=== PATIENT | male | born 1975 | race Caucasian/White ===

== ENCOUNTER 2020-08-02 08:43 | Emergency (ER) | payer BC ==
[~2020-08-02] VITALS: Ht 180.3 cm; Wt 92.0 kg
[2020-08-02 09:09] VITALS: BP 135/86
[2020-08-02] MEDS ORDERED: CETI10CA PO (09:11)
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
[2020-08-02] MEDS ORDERED: DIPH,PERTUSS(ACELL),TET VAC/PF 0.5 ML IM-VACC ONE ×2 (09:18→09:30)
[2020-08-02] MEDS ORDERED: KETOROLAC 30 MG/1 ML ONE (09:18)
[2020-08-02] MEDS ORDERED: KETOROLAC 30 MG/1 ML IM ONE (09:30)
--- NOTE | 2020-08-02 09:50 | NUR ---
MEDICATED PER ORDERS.
--- NOTE | 2020-08-02 10:21 | NUR ---
APPLIED SLING FOR DC. Patient/Caregiver given discharge instructions and they have confirmed that they understand the instructions. Patient ambulatory with steady gait.
== END 2020-08-02 10:31 | disposition home or self-care (01) ==
LOC: ED 10:00
DX: S76.011A Strain of muscle, fascia and tendon of right hip, initial encounter (principal); S43.51XA Sprain of right acromioclavicular joint, initial encounter; S29.011A Strain of muscle and tendon of front wall of thorax, initial encounter; S20.211A Contusion of right front wall of thorax, initial encounter; S43.101A Unspecified dislocation of right acromioclavicular joint, initial encounter; S40.211A Abrasion of right shoulder, initial encounter; S20.311A Abrasion of right front wall of thorax, initial encounter; S70.211A Abrasion, right hip, initial encounter; S09.90XA Unspecified injury of head, initial encounter; V17.4XXA Pedal cycle driver injured in collision with fixed or stationary object in traffic accident, initial encounter; Y93.89 Activity, other specified; Y92.410 Unspecified street and highway as the place of occurrence of the external cause; Y99.8 Other external cause status
CPT/HCPCS: 70450; 71101; 73030; 73502; 90471; 90715; 96372; 99284; J1885

== ENCOUNTER 2020-10-09 14:47 | Emergency (ER) | payer BC ==
[~2020-10-09] VITALS: Ht 180.3 cm; Wt 94.0 kg
[~2020-10-09 14:47] MED LIST: CETI10CA PO
[2020-10-09 15:35] VITALS: BP 140/86
[2020-10-09 16:12] LABS: BASOPHILS % (AUTO) 0 % (0-1); EOSINOPHILS % (AUTO) 1 % (1-7); LYMPHOCYTES % (AUTO) 25 % (22-44); MEAN CORPUSCULAR HEMOGLOBIN 30.9 pg (27.5-34.5); MEAN CORPUSCULAR HGB CONC 33.6 g/dL (33.2-36.2); MEAN PLATELET VOLUME 7.8 fL (7.4-10.4); MONOCYTES % (AUTO) 10 % (2-9); NEUTROPHILS % (AUTO) 64 % (42-75); PLATELET COUNT 237 x10^3/uL (130-400); RED BLOOD COUNT 5.03 x10^6/uL (4.38-5.82); RED CELL DISTRIBUTION WIDTH 12.8 % (9.4-14.8)
[2020-10-09 16:14] LABS: MD NO
--- NOTE | 2020-10-09 16:21 | NUR ---
IMPORTER OR EXPORTER: PT CALLED FOR ROOM, NO ANSWER
[2020-10-09 16:24] LABS: ANION GAP 4 mmol/L (5-15); CHLORIDE 109 mmol/L (98-107)
[2020-10-09 16:29] LABS: ALANINE AMINOTRANSFERASE 24 U/L (12-78); ALKALINE PHOSPHATASE 61 U/L (45-117); BILIRUBIN,TOTAL 0.4 mg/dL (0.2-1.0); CREATININE 1.22 mg/dL (0.7-1.3); TOTAL PROTEIN 7.7 g/dL (6.4-8.2)
--- NOTE | 2020-10-09 16:32 | NUR ---
HEALTHCARE BUSINESS ANALYST: CALLED FOR ROOM, NO ANSWER
[2020-10-09] MEDS ORDERED: CEFTRIAXONE 1,000 MG IM ONE (17:00)
[2020-10-09 17:10] LABS: MICROSCOPIC NOT IND
[2020-10-09] MEDS ORDERED: LIDOCAINE-MPF 1%, 2ML ONE (17:21)
[2020-10-09] MEDS ORDERED: CEFTRIAXONE 1,000 MG ONE (17:21)
== END 2020-10-09 17:54 | disposition home or self-care (01) ==
LOC: ED 16:46
DX: N49.2 Inflammatory disorders of scrotum (principal); N50.812 Left testicular pain; N50.811 Right testicular pain
CPT/HCPCS: 36415; 76870; 80053; 81003; 85025; 87491; 87591; 96372; 99284; J0696

== ENCOUNTER 2021-05-08 16:06 | Emergency (ER) | payer BC ==
[~2021-05-08] VITALS: Ht 177.8 cm; Wt 88.1 kg
--- NOTE | 2021-05-08 16:27 | NUR ---
ASSUMED CARE OF PATIENT. PATIENT REPORTS HIS TESTICLES ARE SWOLLEN. PT ALSO REPORTS CLOUDY URINE. VS STABLE. NO ACUTE DISTRESS. CALL LIGHT IN PLACE. WILL CONTINUE TO MONITOR.
[2021-05-08 17:05] LABS: MICROSCOPIC INDICATED
[2021-05-08 17:53] LABS: ALBUMIN 3.7 g/dL (3.4-5.0); ANION GAP 7 mmol/L (5-15); CALCIUM 8.9 mg/dL (8.5-10.1); CHLORIDE 107 mmol/L (98-107)
[2021-05-08 17:55] LABS: CREATININE 0.97 mg/dL (0.7-1.3)
[2021-05-08 17:58] LABS: BASOPHILS % (AUTO) 0 % (0-1); EOSINOPHILS % (AUTO) 1 % (1-7); LYMPHOCYTES % (AUTO) 27 % (22-44); MEAN CORPUSCULAR HEMOGLOBIN 31.1 pg (27.5-34.5); MEAN CORPUSCULAR HGB CONC 34.2 g/dL (33.2-36.2); MEAN PLATELET VOLUME 8.1 fL (7.4-10.4); MONOCYTES % (AUTO) 11 % (2-9); NEUTROPHILS % (AUTO) 61 % (42-75); PLATELET COUNT 217 x10^3/uL (130-400); RED BLOOD COUNT 5.07 x10^6/uL (4.38-5.82); RED CELL DISTRIBUTION WIDTH 13.4 % (9.4-14.8)
--- NOTE | 2021-05-08 18:00 | NUR ---
report given to CHELSEA Dawson for break
[2021-05-08 18:50] VITALS: BP 157/100
== END 2021-05-08 18:52 | disposition home or self-care (01) ==
LOC: ED 17:15
DX: N49.2 Inflammatory disorders of scrotum (principal); R53.1 Weakness; R63.1 Polydipsia
CPT/HCPCS: 36415; 80048; 81001; 82040; 85025; 99285